=== PATIENT | female | born 1965 | race Caucasian/White ===

== ENCOUNTER 2023-04-11 09:34 | Emergency (ER) | payer MEDICAID, SELFPAY ==
[2023-04-11 09:35] VITALS: BP 143/85; PULSE 99; RESP 18; TEMP 36.4; O2SAT 98
--- NOTE | 2023-04-11 09:45 | ED.VIS.LOWEX ---
HPI History of Present Illness HPI Narrative: 57-year-old female atraumatic right knee pain for last 3 days. No fall injury or trauma. No fever. No redness. No prior knee surgery. Worse to walk on that leg. Chief Complaint: Lower Extremity Injury Informant: patient Occured/Mechanism Mechanism/Context: No injury and No blunt trauma Onset/Context/Timing Onset: Days Context: Gradual Onset Timing: Continuous Quality of Pain: Dull and Aching Current Severity: Mild Maximum Severity: Mild Associated Symptoms Associated Symptoms: Negative for Parasthesia, Weakness or Loss of Funtion Narrative Narrative: 57-year-old female past medical history of chronic pain and chronic back pain. Sees pain management. Has atraumatic right knee pain and swelling for the last 3 days since Tuesday. No fall injury or trauma. No fever. Prior history it worked up with an ultrasound she did not have a blood clot and never had any further evaluation. No history of gout. Prior similar symptoms: Yes Recent Illness/Hospitalization: No PFSH PFSH Home Medications fenofibrate micronized 67 mg capsule (Lofibra) 67 mg PO DAILY 01/22/14 [History Last Taken Unknown] fluticasone propionate 50 mcg/actuation nasal spray,suspension 2 spray DAILY 01/22/14 [History Last Taken Unknown] hydrocodone-acetaminophen 5-325mg 5mg-325mg 1 tab PO Q4H PRN PRN Pain 01/22/14 [History Last Taken Unknown] pantoprazole 40 mg tablet,delayed release 40 mg PO DAILY 01/22/14 [History Last Taken Unknown] sertraline 50 mg tablet 50 mg PO DAILY 01/22/14 [History Last Taken Unknown] simvastatin 40 mg tablet 40 mg PO QHS 01/22/14 [History Last Taken Unknown] hydrocodone 5 mg-acetaminophen 300 mg tablet (Vicodin) 1 - 2 tab PO Q4H PRN PRN Pain #30 tabs 02/11/14 [Rx Last Taken Unknown] Allergy/AdvReac Type Severity Reaction Status Date / Time morphine AdvReac Vomiting Verified 04/11/23 09:36 Social History Smoking Status: Former smoker ROS ROS ED ROS Narrative No recent illness. Review of Systems ROS Unobtainable: Denies due to encephalopathy Constitutional Constitutional ED: Denies chills or fever(s) Eyes Eyes: Denies blurry vision ENT ENT ED: Denies ear pain Cardiovascular Cardiovascular: Denies chest pain Respiratory/Chest Respiratory/Chest: Denies cough Gastrointestinal Gastrointestinal: Denies abdominal pain Genitourinary Genitourinary ED: Denies dysuria Musculoskeletal Musculoskeletal: Denies arthralgias Integumentary Denies abscess Neurologic Neurologic: Denies headache(s) Psychiatric Psychiatric: Denies anxiety Endocrine Endocrinology: Denies polydipsia Hematologic/Lymphatic Hematologic/Lymphatic: Denies easy bleeding Allergic/Immunologic Allergic/Immunologic ED: Denies mouth swelling or tongue swelling EXAM Physical Exam Narrative Exam Narrative: [id number] female no acute distress. Vital signs stable afebrile. HEENT exam unremarkable. Lungs clear. Heart regular rhythm no murmur. Abdomen soft nontender. Moving all 4 extremities. Neurovascularly intact. Left lower extremity both upper extremities are unremarkable with normal range of motion, strength and sensation. Right leg the hip ankle and foot are nontender neurovascular intact normal DP pulse. Normal dorsi plantarflexion. Normal sensation. The right knee is mild to moderately swollen. There is no redness or warmth. She has decreased flexion to about 5 degrees due to discomfort. There is no signs of septic joint. No cellulitis. No redness. Calf is nontender without cords or any significant edema. Rest of exam benign. Const Vital Signs: 04/11/23 09:35 Temperature 97.6 F L Temperature Source Temporal Pulse Rate 99 Respiratory Rate 18 Blood Pressure 143/85 H Blood Pressure Mean 104 Pulse Ox 98 Oxygen Delivery Method Room Air Positive well nourished and well developed; Negative for cachectic, contractures or unkempt General Appearance ED: well developed and NAD; Negative for unkempt, cachectic or contractures Nutritional Appearance: Negative for cachectic HEENT Reports moist mucous membranes normocephalic and atraumatic; Negative for trauma or tenderness Eyes PERRL General Eye ED: Negative for other Neck supple Thyroid: Negative for tender Lymph Lymphatic: Negative for other Resp normal respiratory effort and clear to auscultation bilaterally Effort and Inspection: Negative for pain with movement Auscultation: Negative for rales, rhonchi or wheezes Cardio regular rate, regular rhythm, S1 normal heart sound, S2 normal heart sound and no murmurs Rate: Negative for bradycardia or tachycardic Rhythm: Negative for abnormal rhythm Bruits: Negative for other GI non-tender, non-distended and no masses Inspection: Negative for abdominal distention Auscultation: normoactive bowel sounds Palpation: soft; Negative for tender or guarding Back/Spine no CVA tenderness General Back: Negative for CVA tenderness, swelling or other Cervical Spine: Negative for cervical spine tenderness Thoracic Spine / Upper Back: Negative for thoracic spinal tenderness Lumbar Spine / Lower Back: Negative for lumbar spinal tenderness Extremity normal to inspection and full ROM Extremity Narrative: Except right knee mild to moderate effusion. Decreased range of motion. No septic joint. No cellulitis. No cords or significant calf pain or swelling. General Extremety ED: Yes weight-bearing difficulty General Extremity: weight-bearing difficulty Neuro oriented x3, CN's II-XII intact bilaterally, moves all extremities and no sensory deficits noted Sensorium / Orientation: alert, oriented to person, oriented to place and oriented to time; Negative for orientation impaired, confused, lethargic or stuporous Motor Exam: strength 5/5 throughout Psych mental status grossly normal Appearance: Negative for unkempt Speech: No other Mood & Affect: Negative for anxious Skin no wounds Lesions: no lesions Rashes: no rashes Trauma: Negative for abrasion or laceration MDM MDM MDM Narrative Medical decision making narrative: 37-year-old female atraumatic right knee pain. I suspect this is from arthritis. She has no history of gout. Bite on look like gout. There is no signs of infection or septic joint. She has had no trauma. I will obtain a right knee x-ray. She had a before in the past however was taken care of at that time done an ultrasound there was no DVT. Clinically this does not sound or look like a DVT and she has no risk factors or history. It is basically single joint pain and mild swelling. Repeat exam unchanged. I would treat this as a inflammatory process most likely a mild arthritis. She and I went over x-rays. Ice. Rest. Anti-inflammatories. Follow-up if not improving or return if worse. Return if fever or redness develops. History & Record Review Discussion w/independent historian: Patient Radiography Diagnostic Testing: Right knee x-ray, 4 views, interpreted by myself shows a Mild effusion. No bony abnormality. Good joint space. No fracture or dislocation. Healthy appearing bone. Discharge Plan Triage Chief Complaint: Lower Extremity Injury ED Provider: Raimundo Higgins Dx/Rx/DC Orders Clinical Impression: Osteoarthritis Instructions: ED Knee Effusion Prescriptions: No Action hydrocodone-acetaminophen 1 TABLET tablet 1 tab PO Q4H PRN PRN (Reason: Pain) Label Comments: THIS IS ONLY MED AT HOME NOW, RAN OUT OF OTHERS fenofibrate micronized [Lofibra] 67 MG capsule 67 mg PO DAILY Label Comments: RAN OUT simvastatin 40 MG tablet 40 mg PO QHS Label Comments: RAN OUT pantoprazole 40 MG tablet 40 mg PO DAILY Label Comments: RAN OUT fluticasone propionate 1 SPRAY spray,suspension 2 spray NASAL DAILY Label Comments: RAN OUT sertraline 50 MG tablet 50 mg PO DAILY Label Comments: RAN OUT hydrocodone-acetaminophen [Vicodin] 1 EACH tablet 1 - 2 tab PO Q4H PRN PRN (Reason: Pain) Qty: 30 0RF Rx Instructions: May substitute Hydrocodone/Acetaminophen 5/325 mg Primary Care Provider: [facility] Doctor,Out of Referrals: [facility] Doctor,Out of [Primary Care Provider] - 3-5 Days if not improving Activity Restrictions/Additional Instructions: The inflammation in your knee is most likely a flare up of mild arthritis in your knee combined with your recent yardwork. Ice and elevate to decrease pain and swelling. 3-5 times a day for 30 minutes each time. Rest your knee to decrease the pain and swelling and help it heal. Motrin 600 mg 3-4 times a day. Tylenol in between. The Motrin will decrease the pain and swelling. This should progressively improve if it is getting worse or not improving and needs to be reevaluated. If you develop redness or fever he is to be seen immediately. Disposition Disposition: Home, Self Care
--- NOTE | 2023-04-11 09:50 | RAD_ITS ---
STUDY: X-RAY - RIGHT KNEE REASON FOR EXAM: Female, 57 years old. Atraumatic pain and swelling TECHNIQUE: 4 view(s) of the knee. COMPARISON: None. FINDINGS: Normal visualized distal femur. Normal visualized proximal tibia and fibula. Normal proximal tibiofibular articulation. Normal medial femorotibial compartment. Normal lateral femorotibial compartment. Normal patellofemoral articulation. Small joint effusion. RAD/Knee 4 or More Views IMPRESSION: Small joint effusion. Electronically Signed: Renato Schwarz MD at 10:33 EDT ,
[2023-04-11 10:23] VITALS: BMI 34.0
== END 2023-04-11 10:40 | disposition home or self-care (01) ==
LOC: ED 10:32
PROVIDERS: Emergency Provider Emergency Medicine; Visit Provider Emergency Medicine
DX: M17.11 Unilateral primary osteoarthritis, right knee (principal); Z87.891 Personal history of nicotine dependence
CPT/HCPCS: 73564; 99282